=== PATIENT | male | born 1965 | race Two or more races ===

== ENCOUNTER 2023-01-29 10:18 | Emergency (ER) | payer OTHER, SELFPAY ==
[2023-01-29 10:51] VITALS: BP 124/81; PULSE 107; RESP 16; TEMP 36.6; O2SAT 98; BMI 40.3
--- NOTE | 2023-01-29 11:05 | ED.GENADULT ---
HPI - General Adult General Chief complaint: Skin/Abscess/Foreign Body Stated complaint: Rash Time Seen by Provider: 01/29/23 11:05 Source: patient Mode of arrival: ambulatory Limitations: no limitations History of Present Illness HPI narrative: Patient is a 57 year old assigned male at with no reported medical history presenting to the emergency department today with a rash on the neck and left side of his torso. Patient states that over the last 4 days he has developed an itchy rash to the left side of his neck and left side of his chest. Patient denies any dizziness, lightheadedness, abdominal pain, nausea, vomiting, fever, chills, blurry vision, double vision, loss of vision, chest pain, difficulty breathing, shortness of breath, back pain, night sweats, pain with urination, increased urinary frequency, increased urinary urgency, blood in his urine or stool, syncope or a near syncopal episode, recent trauma or falls, bowel incontinence, bladder incontinence, bowel retention, bladder retention, or any other complaints at this time. Onset (ago): day(s) (4) Location: neck, chest and left Severity: mild Severity scale (1-10): 3 Quality: other (itching) Relieving factors: none Exacerbating factors: none Associated symptoms: rash Treatments prior to arrival: none Related Data Previous Rx's Medication Instructions Recorded prednisone 20 mg tablet 20 mg PO DAILY 7 days #7 tabs 01/29/23 Allergies Allergy/AdvReac Type Severity Reaction Status Date / Time penicillin V Allergy Unknown vomit Unverified 01/12/15 00:00 Penicillins [PENICILLINS] AdvReac Unknown NAUSEA & Unverified 01/20/20 14:49 VOMITING Review of Systems Constitutional: Constitutional: Reports no additional constitutional complaints, Denies chills, Denies fever(s) and Denies night sweats Eyes: Eyes: Reports no additional eye complaints, Denies blurry vision, Denies change in vision, Denies diplopia, Denies eye discharge, Denies loss of vision and Denies eye pain ENT: Denies dizziness Comments: left neck rash Cardiovascular: Cardiovascular: Reports no additional cardiovascular complaints, Denies chest pain, Denies lightheadedness, Denies Loss of Consciousness and Denies dyspnea Respiratory: Respiratory: Reports no additional respiratory complaints and Denies dyspnea Gastrointestinal: Gastrointestinal: Reports no additional gastrointestinal complaints, Denies abdominal pain, Denies melena, Denies hematochezia, Denies change in bowel habits and Denies change in stool character Genitourinary: Genitourinary: Reports no additional male genitourinary complaints, Denies hematuria, Denies oliguria, Denies difficulty urinating, Denies dysuria, Denies urinary frequency, Denies urinary hesitancy, Denies urinary incontinence and Denies urinary urgency Musculoskeletal: Musculoskeletal: Reports no additional musculoskeletal complaints, Denies numbness and Denies tingling Integumentary/Breasts: Comments: left side of chest rash Neurologic: Denies dizziness, Denies loss of vision, Denies numbness and Denies tingling Psychiatric: Psychiatric: Reports no additional psychiatric complaints Endocrine: Endocrine: Reports no additional endocrine complaints Hematologic/Lymphatic: Hematologic/Lymphatic: Reports no additional hematologic/lymphatic complaints Allergic/Immunologic: Allergic/Immunologic: Reports no additional allergic/immunologic complaints [facility] Past Medical History Attestation statement: The following information was validated with the patient. Source: old records reviewed and nursing notes reviewed Social History Social History Advance Directives: No Advance Directives Information Provided: Yes Physical Exam ED Vital Signs: Vital Signs - 24 hr 01/29/23 10:51 Temperature 98 F Pulse Rate 107 H Respiratory Rate 16 Blood Pressure 124/81 Pulse Oximetry 98 Oxygen Delivery Method Room Air BMI result Body Mass Index 40.3 Const General: cooperative, no acute distress, alert and awake Nutritional Appearance: well nourished Orientation/consciousness: patient oriented x3 Limitations: no limitations [facility] Head: Yes normal to inspection and Yes atraumatic Ears: hearing grossly normal bilaterally and external ears normal General nose exam: Normal external nose present, no nasal discharge noted and no epistaxis Face and sinus: Yes normal facial exam, No abrasion and No laceration Mouth: Normal oral and palatal mucosa present, no drooling and no muffled voice Eyes General: appearance normal, both eyes and all related structures Periorbital: periorbital findings normal Eyelids: Yes eyelids normal Conjunctivae: conjunctivae normal Pupils: Equal, round and reactive pupils present EOM: EOMs intact bilaterally Neck Other: small area of erythematous and dry skin on the left side of the neck Neck: Yes full ROM and Yes no lymphadenopathy Chest Other: small area of erythematous and dry skin to the left upper chest Resp Effort & Inspection: normal respiratory effort and able to speak in complete sentences GI Inspection: Yes normal to inspection Neuro General: patient oriented x3 and moves all extremities Cranial nerves: Yes Equal, round and reactive pupils present Cognition (Neuro): normal cognition Motor exam (neuro): 5/5 motor strength present throughout Sensory Exam: Normal double simultaneous stimulation for sensation Coordination: [id number] test normal Extrem General: Yes normal to inspection, Yes full ROM and Yes capillary refill normal Psych Appearance: grossly normal Mental Status: mental status grossly normal Affect: normal affect Attitude: cooperative Thought process: Normal thought process present Thought content: Normal thought content present Insight: Good insight present (Psych) Medical Decision Making Medical Decision Making MDM Narrative: Patient is a 57 year old assigned male at with no reported medical history presenting to the emergency department today with a rash to the left neck and left chest. Patient's physical exam was as noted in the physical exam portion of this chart, consistent with eczema. No warmth, no open areas, no evidence of pustules or vesicles. I explained my physical exam findings to the patient. I answered all questions asked by the patient. I stressed the importance of the patient taking his medication as prescribed. I stressed the importance of the patient following up with his primary care provider and a telecommunications administrator. I stressed the importance of the patient returning to the emergency department immediately if his symptoms were to worsen or if he were to develop any dizziness, shortness of breath, difficulty breathing, chest pain, blurry vision, loss of vision, nausea, vomiting, abdominal pain, fever, chills, back pain, or any other complaints. Patient verbalized agreement and understanding with this treatment plan and discharge. Differential Diagnosis Differential Diagnoses: The differential diagnosis associated with the presentation includes Eczema Contact dermatitis Dry skin Rash Prescription Management I considered prescription management with: Other (patient prescribed a steroid) Discharge Plan Discharge Clinical Impression: Eczema Patient Disposition: Home, Self-Care Instructions: Dermatitis (ED) Additional Instructions: Follow up with your primary care provider and a telecommunications administrator. Return to the emergency department immediately if your symptoms worsen or if you develop any dizziness, shortness of breath, difficulty breathing, chest pain, blurry vision, loss of vision, nausea, vomiting, abdominal pain, fever, chills, back pain, or any other complaints. Prescriptions: New prednisone 20 mg tablet 20 mg PO DAILY 7 Days Qty: 7 0RF Referrals: [facility] [Provider Group] (Call to establish and follow up with a telecommunications administrator.) Roro Cote PA [Primary Care Provider] - Interventions: ED Discharge Assessment Last Done: 01/29/23 11:36 Discharge Date/Time: 01/29/23 11:36 Print Language: Greenlandic
== END 2023-01-29 11:36 | disposition home or self-care (01) ==
PROVIDERS: Emergency Provider Emergency Medicine; PCP Physician Assistant Medical
DX: L30.9 Dermatitis, unspecified (principal)
CPT/HCPCS: 99282

== ENCOUNTER 2023-07-18 12:16 | Emergency (ER) | payer OTHER, SELFPAY ==
[2023-07-18 12:38] VITALS: BP 143/91; PULSE 118; RESP 16; TEMP 36.9; O2SAT 98; BMI 43.6
--- NOTE | 2023-07-18 12:38 | ED_ITS ---
HPI - Back Pain/Injury General Chief Complaint: Back Pain/Injury Stated Complaint: back spasm Time Seen by Provider: 07/18/23 13:27 History of Present Illness HPI Narrative: Patient with chronic back pain is complaining of a flare of exacerbated pain with no injury no fall, pain is on the left and mid of his back it is similar to prior episodes There is no loss of sensation there is no weakness of the muscles, no change to bowel or bladder no incontinence no dysuria, denies IV drug use no fever no chest pain no abdominal denies any rash Related Data Previous Rx's Medication Instructions Recorded prednisone 20 mg tablet 20 mg PO DAILY 7 days #7 tabs 01/29/23 cyclobenzaprine 10 mg tablet 10 mg PO TID PRN muscle spasm #10 07/18/23 tabs ibuprofen 600 mg tablet 600 mg PO Q6H PRN pain #20 tabs 07/18/23 oxycodone 5 mg tablet 5 mg PO Q6H PRN pain #10 tabs 07/18/23 Allergies Allergy/AdvReac Type Severity Reaction Status Date / Time penicillin V Allergy Unknown vomit Unverified 01/12/15 00:00 Penicillins [PENICILLINS] AdvReac Unknown NAUSEA & Unverified 01/20/20 14:49 VOMITING [facility] Past Medical History Source: nursing notes reviewed Social History Social History Advance Directives: No Advance Directives Information Provided: No Physical Exam Vital Signs: Vital Signs: Last Vital Signs Temp 98.5 F 07/18/23 12:38 Pulse 118 H 07/18/23 12:38 Resp 16 07/18/23 12:38 BP 143/91 H 07/18/23 12:38 Pulse Ox 98 07/18/23 12:38 O2 Del Method Room Air 07/18/23 12:38 BMI result Body Mass Index 43.6 General appearance no distress Head normocephalic atraumatic Neck is supple nontender Respiratory no distress Abdomen soft nontender The back had left lower lumbar upper gluteal tenderness, no focal bony tenderness, no rash no abnormality of the skin no redness, pain easily reproduced with movement Extremities is full range of motion x4 Neuro gait and balance are normal, motor is 5/5 x4, sensation intact and symmetrical, he can walk on heels walk on toes Course Course Course Narrative: This is an RME: Additional HPI, ROS, PE not included below will be deferred to primary provider. Patient is a 57-year-old male presents emergency department for evaluation of Back pain with muscle spasms diffusely across the lower back for 1 week. Denies bladder bowel dysfunction, no numbness or tingling. Denies precipitating injury. Reports history of similar pain in the past secondary to nerve issues . Ibuprofen has been helpful in the past, unfortunately he has not been able to take any this time around as he did not have any available at home. Patient with chronic back pain having an exacerbation no evidence of any neurologic deficit on exam or history, no changes to bowel or bladder no IV drug use no fever is discharged home with analgesics Medications Administered Discontinued Medications Generic Name Dose Route Start Last Admin Trade Name Freq PRN Reason Stop Dose Admin Ibuprofen 600 mg 07/18/23 12:40 07/18/23 12:44 Ibuprofen 600 Mg Tablet PO 07/18/23 12:41 600 mg ONCE ONE Administration Discharge Plan Discharge Clinical Impression: Back pain Patient Disposition: Home, Self-Care Additional Instructions: You are having a flare of her chronic back pain If not better next week follow with your doctor Return to the ER any time if worse Prescriptions: New ibuprofen 600 mg tablet 600 mg PO Q6H PRN (Reason: pain) Qty: 20 0RF cyclobenzaprine 10 mg tablet 10 mg PO TID PRN (Reason: muscle spasm) Qty: 10 0RF oxycodone 5 mg tablet 5 mg PO Q6H PRN (Reason: pain) Qty: 10 0RF Rx Instructions: Partial Fill upon patient request. No Action prednisone 20 mg tablet 20 mg PO DAILY 7 Days Qty: 7 0RF
[2023-07-18] MEDS: Ibuprofen 600 MG TABLET PO (12:44)
[2023-07-18] MEDS: Ketorolac Tromethamine 30 MG/ML VIAL IM (13:44)
[2023-07-18 13:49] VITALS: BP 143/91; PULSE 118; RESP 16; TEMP 36.9
== END 2023-07-18 13:49 | disposition home or self-care (01) ==
PROVIDERS: Emergency Provider Emergency Medicine Emergency Medical Services; PCP Physician Assistant Medical
DX: M54.9 Dorsalgia, unspecified (principal)
CPT/HCPCS: 96372; 99283; 99284; J1885